=== PATIENT | female | born 1970 ===

== ENCOUNTER → 2021-04-26 09:12 | Outpatient (CLI) | payer OTHER, SELFPAY ==
--- NOTE | ~2021-04-26 | CT_ITS ---
EXAMINATION: CT soft tissue neck w con DATE: 04/26/2021 10:00 INDICATION: Neck swelling. Sjogren's syndrome. TECHNIQUE: Computed tomography (CT) of the neck was performed with 75 mL Omnipaque-350 intravenous co ntrast. Automated exposure control and iterative reconstruction technique were employed. The dose-kimberly gth product was 366.67 mGy-cm. COMPARISON: None FINDINGS: There are no pathologically enlarged lymph nodes. The cervical carotid arteries are normal. The parotid glands and submandibular glands demonstrate heterogeneous density and mild atrophy, con sistent with chronic Sjogren syndrome. The paranasal sinuses are clear. The mastoid air cells are nor mal. There is moderate cervical spondylosis. IMPRESSION: 1. No abnormal mass or lymphadenopathy. 2. Heterogeneity and mild atrophy of the parotid glands and submandibular glands, consistent with chr onic Sjogren syndrome. Reviewed, dictated and finalized at location A. IMPRESSION: 1. No abnormal mass or lymphadenopathy. 2. Heterogeneity and mild atrophy of the parotid glands and submandibular gland s, consistent with chronic Sjogren syndrome.
== END ==
DX: R22.1 Localized swelling, mass and lump, neck (principal); M47.812 Spondylosis without myelopathy or radiculopathy, cervical region
CPT/HCPCS: 70491; Q9967

== ENCOUNTER 2021-07-03 19:35 | Emergency (ER) | payer OTHER, SELFPAY ==
[2021-07-03 19:40] VITALS: BP 123/65; PULSE 89; RESP 20; TEMP 36.5; O2SAT 100
--- NOTE | 2021-07-03 20:32 | ED.URI ---
HPI - URI/Sore Throat General Chief Complaint: Upper Respiratory Infection Stated Complaint: scratchy throat headache runny nose Time Seen by Provider: 07/03/21 20:15 Source: patient and RN notes reviewed Mode of arrival: ambulatory Limitations: no limitations History of Present Illness HPI Narrative: 51 year old female presents to [facility] with complaints of cough, congestion, scratchy throat since 06/28/2021 with headache, sinus pressure starting today with swollen glands to her neck. 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 Patient states that she did have COVID in September but has not had vaccinations.Patient denies any known fevers, chills or sweats, states some body aches, has been aking Tylenol for her symptoms. Related Data Home Medications Medication Instructions Recorded Confirmed cyclobenzaprine 10 mg PO HS 07/03/21 07/03/21 epinephrine 0.3 mg IM ONCE PRN 07/03/21 07/03/21 gabapentin 100 mg PO TID 07/03/21 07/03/21 hydroxychloroquine 200 mg PO BID 07/03/21 07/03/21 metoprolol succinate 25 mg PO DAILY 07/03/21 07/03/21 omeprazole 40 mg PO BID 07/03/21 07/03/21 pilocarpine HCl 5 mg PO BID 07/03/21 07/03/21 zolmitriptan [Zomig] 5 mg INTRANASAL DAILY 07/03/21 07/03/21 Allergies Allergy/AdvReac Type Severity Reaction Status Date / Time Penicillins Allergy Intermediate Rash Verified 07/03/21 20:06 Review of Systems Review of Systems: CONSTITUTIONAL: Denies fever, chills, or sweats. EYES: Denies visual changes, redness, or discharge. ENT: Positive rhinorrhea, congestion, scratchy sore throat, no otalgia.glands in neck swollen CARDIOVASCULAR: Denies chest pain, palpitations, or edema. RESPIRATORY: Positive cough no dyspnea. GASTROINTESTINAL: Denies abdominal pain, nausea, vomiting, or diarrhea. GENITOURINARY: Denies dysuria or hematuria. SKIN: Denies rash or itching. MUSCULOSKELETAL: Denies acute back pain, no joint pain, some body aches NEUROLOGIC: positive frontal headache,no numbness, or weakness. PSYCHIATRIC: Denies anxiety or depression. All systems reviewed & are unremarkable except as noted in HPI and below PMFSH Past Medical History Medical History (Updated 07/09/21 @ 12:16 by Wendy Bustos NP) GERD (gastroesophageal reflux disease) Migraine MVP (mitral valve prolapse) Sjogrens syndrome Surgical History Surgical History (Updated 07/09/21 @ 12:17 by Wendy Bustos NP) History of lumbar fusion Family History Family History (Updated 07/09/21 @ 12:18 by Wendy Bustos NP) Other No significant family history Social History Social History (Updated 07/09/21 @ 12:17 by Wendy Bustos NP) Smoking status: Never smoker Alcohol intake: current Alcohol use details: social Substance use: never Living arrangements: with family Gender identity (if verbalized by the patient): Female Comments At time of signature agree with nursing documentation of past medical, surgical social history. There is no relevant family history pertaining to present complaint. Exam Narrative: GENERAL: Well-appearing, well-nourished, and in no acute distress. HEAD: Normocephalic, atraumatic. EYES: PERRLA and EOMI. ENT: Nares redness, clear rhinorrhea no epistaxis. Mucous membranes moist.TM's normal throat red with no exudates or lesions no tonsil enlargement post nasal drainage noted NECK: Supple. lymphadenopathy CHEST: Clear to auscultation. No respiratory distress. Dry cough, SaO2 100% on room air HEART: Regular rate and rhythm. No murmur heard. Normal peripheral pulses. ABDOMEN: Soft, nontender, nondistended, normal active bowel sounds. EXTREMITIES: Normal range of motion. No edema. SKIN: Warm, dry, no rash. NEURO: No focal deficits. Alert and oriented x3. Course Vital Signs Vital signs: Vital Signs Temperature 36.5 C 07/03/21 19:40 Pulse Rate 89 07/03/21 19:40 Respiratory Rate 20 07/03/21 19:40 Blood Pressure 123/65 07/03/21
[2021-07-05 20:43] LABS: SARS-CoV-2 RNA PCR Negative
== END 2021-07-03 20:46 | disposition home or self-care (01) ==
PROVIDERS: Emergency Provider Registered Nurse
DX: J06.9 Acute upper respiratory infection, unspecified (principal); Z20.822 Contact with and (suspected) exposure to COVID-19; K21.9 Gastro-esophageal reflux disease without esophagitis; I34.9 Nonrheumatic mitral valve disorder, unspecified; M35.00 Sjogren syndrome, unspecified
CPT/HCPCS: 87426; 99213; C9803; G0463; U0003; U0005

== ENCOUNTER → 2023-05-06 07:41 | Outpatient (CLI) | payer OTHER, SELFPAY ==
--- NOTE | ~2023-05-06 | MR_ITS ---
MRI of the thoracic spine Clinical History: Radiculopathy Technique: Axial T2-weighted and gradient images, and sagittal T1-weighted, T2-weighted, and STIR kezia ges were acquired. Findings: There is no fracture or subluxation of the thoracic spine. Vertebral bodies maintain normal height and alignment. No bone marrow signal reality seen. No disc bulge or herniation seen at any thoracic level. No spinal canal stenosis or cord compression identified. No epidural mass or collection seen. Paravertebral soft tissues are unremarkable. Impression: Unremarkable exam. Reviewed, dictated and finalized at location M. Impression: Unremarkable exam.
--- NOTE | ~2023-05-06 | MR_ITS ---
MRI of the lumbar spine Clinical History: Radiculopathy Technique: Axial T2-weighted images, and sagittal T1-weighted, T2-weighted, and and T2 fat-sat images were acquired. Findings: There is no fracture in the lumbar spine. Minimal grade 1 anterolisthesis of L4 over L5 not ed. There is posterior fusion from L5 to S1 with bilateral rods and transpedicular screws present. L5 -S1 interbody fusion device is present. L5 laminectomy present. No bone marrow signal reality evident . At L1-L2, L2-L3, L3-L4, there is no disc bulge or herniation. There is mild facet arthropathy at thes e levels. No spinal canal stenosis or neural foraminal narrowing at these levels. At L4-L5, disc bulge and severe facet arthropathy are present. No central canal stenosis. There is mi ld bilateral neural foraminal narrowing. At L5-S1, there is no disc bulge or herniation. There is underlying severe facet arthropathy. No spin al canal stenosis. Neural foramina are probably preserved. Paravertebral soft tissues are unremarkable aside from expected postoperative change. Impression: Posterior fusion from L5 to S1, as detailed above. Minimal grade 1 anterolisthesis of L4 over L5. Mild degenerative spondylosis of the lower lumbar spine, as detailed above. Reviewed, dictated and finalized at location . Impression: Posterior fusion from L5 to S1, as detailed above. Minimal grade 1 anterolisthesis of L4 over L5. Mild degenerative spondylosis of the lower lumbar spine, as detailed above.
--- NOTE | ~2023-05-06 | MR_ITS ---
MRI of the cervical spine Clinical History: Radiculopathy Technique: Axial T2-weighted and gradient images, and sagittal T1-weighted, T2-weighted, and STIR kezia ges were acquired. Findings: There is no fracture or subluxation of the cervical spine. Vertebral bodies maintain normal height and alignment. No suspicious bone marrow signal abnormality seen. At C2-C3, C3-C4, and C4-C5, there is no significant disc bulge or herniation. No spinal canal stenosi s, cord compression, or neural foraminal narrowing at these levels. At C5-C6, there is advanced degenerative disc narrowing with disc osteophyte complex. There is minima l canal stenosis without neris cord compression. There is bilateral neural foraminal narrowing, right worse than left. At C6-C7, there is moderate degenerative disc narrowing with mild disc osteophyte convex. There is le ft neural foraminal narrowing. Right neural foramen probably preserved. No central canal stenosis or cord compression. No abnormal signal seen in the spinal cord. Paravertebral soft tissues are unremarkable. Impression: Moderate degenerative spondylosis at C5-C6, as detailed above. Mild to moderate degenerative spondylosis at C6-C7, as detailed above. Reviewed, dictated and finalized at [facility]. Impression: Moderate degenerative spondylosis at C5-C6, as detailed above. Mild to moderate degenerative spondylosis at C6-C7, as detailed above.
== END ==
DX: M51.24 Other intervertebral disc displacement, thoracic region (principal); Z98.1 Arthrodesis status; M43.06 Spondylolysis, lumbar region; M43.02 Spondylolysis, cervical region
CPT/HCPCS: 72141; 72146; 72148